=== PATIENT | female | born 1985 | race American Indian/Alaskan Native ===

== ENCOUNTER 2016-11-11 05:07 | Emergency (ER) | payer MEDICARE ==
[2016-11-11 05:29] VITALS: BP 141/91
[2016-11-11 06:12] LABS: Basophils % (Auto) 0.6 % (0.0-1.8); Eosinophils % (Auto) 7.3 % (0.0-4.3); Hemoglobin 12.3 gm/dl (10.1-14.3); Mean Corpuscular HGB Conc 32 % (30-34); Mean Corpuscular Hemoglobin 29 pg (28-32); Mean Corpuscular Volume 90 fl (79-97); Platelet Count 334 K/mm3 (140-440); White Blood Count 8.2 K/mm3 (4.5-11.0)
[2016-11-11 06:20] LABS: INR 1.06 (0.87-1.13); Partial Thromboplastin Time 30.4 Sec. (24.2-36.6)
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
[2016-11-11 06:42] LABS: Alanine Aminotransferase 11 units/L (7-56); Albumin 3.7 g/dL (3.9-5); Alkaline Phosphatase 67 units/L (35-129); Anion Gap 17 mmol/L; BUN/Creatinine Ratio 11.42; Blood Urea Nitrogen 8 mg/dL (7-17); Calcium 8.7 mg/dL (8.4-10.2); Carbon Dioxide 23 mmol/L (22-30); Chloride 103.2 mmol/L (98-107); Glucose 99 mg/dL (65-100); Lipase 17 units/L (13-60); Potassium 3.7 mmol/L (3.6-5.0); Sodium 139 mmol/L (137-145); Total Protein 7.4 g/dL (6.3-8.2)
--- NOTE | 2016-11-11 07:03 | ED Elopement Review ---
ED Pt Elopement review - Results review Lab results: Laboratory Tests 11/11/16 11/11/16 11/11/16 05:32 05:32 05:32 WBC 8.2 RBC 4.20 Hgb 12.3 Hct 38.0 MCV 90 MCH 29 MCHC 32 RDW 15.0 Plt Count 334 Lymph % (Auto) 34.9 [place] % (Auto) 6.1 Eos % (Auto) 7.3 H Baso % (Auto) 0.6 Lymph # 2.9 [place] # 0.5 Eos # 0.6 H Baso # 0.0 Seg Neutrophils % 51.1 Seg Neutrophils # 4.2 PT INR APTT Sodium 139 Potassium 3.7 Chloride 103.2 Carbon Dioxide 23 Anion Gap 17 BUN 8 Creatinine 0.7 Estimated GFR > 60 BUN/Creatinine Ratio 11.42 Glucose 99 Calcium 8.7 Total Bilirubin 0.20 AST 11 ALT 11 Alkaline Phosphatase 67 Troponin T < 0.010 Total Protein 7.4 Albumin 3.7 L Albumin/Globulin Ratio 1.0 Lipase 17 HCG, Qual Negative 11/11/16 05:32 WBC RBC Hgb Hct MCV MCH MCHC RDW Plt Count Lymph % (Auto) [place] % (Auto) Eos % (Auto) Baso % (Auto) Lymph # [place] # Eos # Baso # Seg Neutrophils % Seg Neutrophils # PT 13.7 INR 1.06 APTT 30.4 Sodium Potassium Chloride Carbon Dioxide Anion Gap BUN Creatinine Estimated GFR BUN/Creatinine Ratio Glucose Calcium Total Bilirubin AST ALT Alkaline Phosphatase Troponin T Total Protein Albumin Albumin/Globulin Ratio Lipase HCG, Qual - Call Back decision Pt Call Back Decision: No action required
[2016-11-11 07:04] LABS: Bacteria,Urine 1+ /HPF (Negative); Bilirubin,Urine NEG (Negative); Blood,Urine MOD (Negative); Ketones,Urine NEG (Negative); Leukocyte Esterase,Urine NEG (Negative); Mucus,Urine 1+ /HPF; Nitrite,Urine NEG (Negative); Protein,Urine <15 mg/dL mg/dL (Negative); Urobilinogen,Urine < 2.0 mg/dL (<2.0)
== END 2016-11-11 07:03 ==
LOC: ED 05:07
DX: Z53.21 Procedure and treatment not carried out due to patient leaving prior to being seen by health care provider (principal)
CPT/HCPCS: 36415; 80053; 81001; 83690; 84484; 84703; 85025; 85610; 85730; 93005; 93010

== ENCOUNTER 2017-07-12 10:50 | Emergency (ER) | payer MEDICARE ==
[2017-07-12 11:47] VITALS: BP 121/71
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
[2017-07-12] MEDS ORDERED: TETRACAINE 0.5% OU PRN (12:07)
[2017-07-12] MEDS ORDERED: FUL-GLO OP ONE ×2 (12:07→12:11)
[2017-07-12] MEDS ORDERED: BSS ONE (12:11)
[2017-07-12] MEDS ORDERED: TETRACAINE 0.5% ONE (12:11)
== END 2017-07-12 12:57 | disposition home or self-care (01) ==
LOC: ED 10:50
DX: S05.02XA Injury of conjunctiva and corneal abrasion without foreign body, left eye, initial encounter (principal); I10 Essential (primary) hypertension; I25.2 Old myocardial infarction; V89.2XXA Person injured in unspecified motor-vehicle accident, traffic, initial encounter; Y93.89 Activity, other specified; Y92.89 Other specified places as the place of occurrence of the external cause; Y99.8 Other external cause status
CPT/HCPCS: 99283

== ENCOUNTER 2018-01-14 15:36 | Emergency (ER) | payer MEDICARE ==
[2018-01-14 16:02] VITALS: BP 147/94
[2018-01-14 20:12] LABS: Basophils # (Auto) 0.1 K/mm3 (0.0-0.1); Basophils % (Auto) 0.4 % (0.0-1.8); Eosinophils # (Auto) 0.6 K/mm3 (0.0-0.4); Eosinophils % (Auto) 4.9 % (0.0-4.3); Hematocrit 36.8 % (30.3-42.9); Hemoglobin 11.9 gm/dl (10.1-14.3); Lymphocytes # (Auto) 3.5 K/mm3 (1.2-5.4); Lymphocytes % (Auto) 29.3 % (13.4-35.0); Mean Corpuscular HGB Conc 32 % (30-34); Mean Corpuscular Hemoglobin 29 pg (28-32); Mean Corpuscular Volume 91 fl (79-97); Monocytes # (Auto) 0.7 K/mm3 (0.0-0.8); Platelet Count 320 K/mm3 (140-440); Red Blood Count 4.06 M/mm3 (3.65-5.03)
[2018-01-14 20:22] LABS: INR 0.91 (0.87-1.13)
[2018-01-14 20:30] LABS: BUN/Creatinine Ratio 14; Blood Urea Nitrogen 10 mg/dL (7-17); Calcium 9.4 mg/dL (8.4-10.2); Hemolysis Index 4
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
[2018-01-14] MEDS ORDERED: MOTRIN PO ONE (23:06)
== END 2018-01-14 23:39 | disposition home or self-care (01) ==
LOC: ED 15:36
DX: M79.602 Pain in left arm (principal); I10 Essential (primary) hypertension; I25.2 Old myocardial infarction; E03.9 Hypothyroidism, unspecified
CPT/HCPCS: 36415; 80048; 85025; 85610; 85730; 93005; 93010; 99283

== ENCOUNTER 2018-10-09 10:00 | Emergency (ER) | payer MEDICARE ==
[2018-10-09 10:04] VITALS: BP 134/79
[2018-10-09] MEDS ORDERED: IBUPROFEN PO ONE (10:28)
--- NOTE | 2018-10-09 10:39 | Emergency Department Report ---
ED Lower Extremity HPI - General Chief Complaint: Extremity Problem,Nontraumatic Stated Complaint: LEFT FOOT PAIN Time Seen by Provider: 10/09/18 10:20 Source: patient Mode of arrival: Wheelchair Limitations: No Limitations - History of Present Illness Initial Comments: This is a 33-year-old female nontoxic, well nourished in appearance, no acute signs of distress presents to the ED with c/o of left knee pain 1 day. Patient stated that she believes she twisted it while getting to the bed. Patient denies any other trauma. Patient denies any numbness, tingling, fever, chills, nausea, vomiting, chest pain, shortness of breath, headache, stiff neck. Patient denies any joint swelling or joint redness. Patient denies decreased range of motion. Patient stated has decreased gait due to pain. Patient denies any allergies or significant past medical history. MD Complaint: foot injury -: days(s) (1) Injury: Foot: Left Place: home Severity: mild Severity scale (0 -10): 8 Improves With: immobilization Worsens With: weight bearing, movement, palpation Associated Symptoms: able to partially bear weight, ambulatory. denies: snap/pop sensation, swelling, numbness, tingling, unable to bear weight - Related Data Previous Rx's Medication Instructions Recorded Last Taken Type Ciprofloxacin 0.3% (Nf) 5 drops OS Q6H #1 drops 07/12/17 Unknown Rx [Ciprofloxacin OPTH] Ibuprofen 400 mg PO QID 5 Days #20 tablet 01/14/18 Unknown Rx Acetaminophen/Codeine [Tylenol 1 tab PO Q6H PRN #12 tab 10/09/18 Unknown Rx /Codeine # 3 tab] Ibuprofen [Motrin] 600 mg PO Q8H PRN #20 tablet 10/09/18 Unknown Rx Allergies Allergy/AdvReac Type Severity Reaction Status Date / Time No Known Allergies Allergy Verified 01/14/18 15:58 ED Review of Systems ROS: Stated complaint: LEFT FOOT PAIN Other details as noted in HPI Constitutional: denies: chills, fever Eyes: denies: eye pain, eye discharge, vision change ENT: denies: ear pain, throat pain Respiratory: denies: cough, shortness of breath, wheezing Cardiovascular: denies: chest pain, palpitations Endocrine: no symptoms reported Gastrointestinal: denies: abdominal pain, nausea, diarrhea Genitourinary: denies: urgency, dysuria, discharge Musculoskeletal: denies: back pain, joint swelling, arthralgia Skin: denies: rash, lesions Neurological: denies: headache, weakness, paresthesias Psychiatric: denies: anxiety, depression Hematological/Lymphatic: denies: easy bleeding, easy bruising ED Past Medical Hx - Past Medical History Previous Medical History?: Yes Hx Hypertension: Yes Hx Heart Attack/AMI: Yes (AGE 16) Hx Congestive Heart Failure: No Hx Diabetes: No Hx Asthma: No Hx COPD: No Additional medical history: Brain injury. Sean in left leg. Blood clots in left side of body. [place] at age 17. Hypothyroidism. Anemia. 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 Vitamin D deficiency - Surgical History Past Surgical History?: Yes Additional Surgical History: Sean placement to left leg. Heart Surgery. left eye surgery. Obesity - Social History Smoking Status: Never Smoker Substance Use Type: None - Medications Home Medications: Home Medications Medication Instructions Recorded Confirmed Last Taken Type Ciprofloxacin 0.3% (Nf) 5 drops OS Q6H #1 drops 07/12/17 Unknown Rx [Ciprofloxacin OPTH] Ibuprofen 400 mg PO QID 5 Days #20 tablet 01/14/18 Unknown Rx Acetaminophen/Codeine [Tylenol 1 tab PO Q6H PRN #12 tab 10/09/18 Unknown Rx /Codeine # 3 tab] Ibuprofen [Motrin] 600 mg PO Q8H PRN #20 tablet 10/09/18 Unknown Rx ED Physical Exam - General Limitations: No Limitations General appearance: alert, in no apparent distress - Head Head exam: Present: atraumatic, normocephalic - Extremities Exam Extremities exam: Present: normal inspection, full ROM, tenderness, normal capillary refill. Absent: joint swelling, calf tenderness - Expanded Lower Extremity Exam Left Hip exam: Present: normal inspection, full ROM. Absent: tenderness, swelling Upper Leg exam: Present: normal inspection, full ROM. Absent: tenderness, swelling Knee exam: Present: normal inspection, full ROM. Absent: tenderness, swelling Lower Leg exam: Present: normal inspection, full ROM. Absent: tenderness, swelling Ankle exam: Present: normal inspection, full ROM. Absent: tenderness, swelling, abrasion, laceration, ecchymosis, deformity, crepidus, dislocation, erythema, a nterior draw sign Foot/Toe exam: Present: normal inspection, full ROM, tenderness. Absent: swelling, abrasion, laceration, ecchymosis, deformity, crepidus, dislocation, erythema, amputation, puncture wound, foreign body, calcaneal tenderness, tenderness at base of 5th metatarsal, nail avulsion, subungual hematoma Neuro vascular tendon exam: Present: no vascular compromise Gait: Positive: observed and limited by pain - Back Exam Back exam: Present: normal inspection, full ROM. Absent: tenderness, CVA tenderness (R) - Neurological Exam Neurological exam: Present: alert, oriented X3 - Psychiatric Psychiatric exam: Present: normal affect, normal mood - Skin Skin exam: Present: warm, dry, intact, normal color. Absent: rash ED Course Vital Signs 10/09/18 10:04 Temperature 98.2 F Pulse Rate 95 H Respiratory 18 Rate Blood Pressure 134/79 [Right] O2 Sat by Pulse 96 Oximetry - Reevaluation(s) Reevaluation #1: 10/09/18 10:38 Patient is speaking in full sentences with no signs of distress noted. ED Lower Extremity MDM - Medical Decision Making This is a 33-year-old female that presents with left foot strain. Patient is stable and was examined by me. I referred patient to an orthopedic doctor for further evaluation for possible MRI. X-ray has been obtained and dictated by the radiologist. Patient is notified of the x-ray report with noted by the patient. Patient does have normal gait with no tenderness and no joint swelling. No ecchymosis. no joint redness or swelling. Not warm to touch. No signs of cellulites present. Patient received a ortho shoe. Patient was instructed to RICE therapy. Patient received Motrin for pain. Patient is discharged with Motrin. At time of discharge, the patient does not seem toxic or ill in appearance. No acute signs of distress noted. Patient agrees to discharge treatment plan of care. No further questions noted by the patient. Critical care attestation.: If time is entered above; I have spent that time in minutes in the direct care of this critically ill patient, excluding procedure time. ED Disposition Clinical Impression: Strain of left foot Disposition: DC-01 TO HOME OR SELFCARE Is pt being admited?: No Does the pt Need Aspirin: No Condition: Stable Instructions: RICE Therapy (ED), Acetaminophen/Codeine (By mouth) Additional Instructions: Follow-up with a orthopedic doctor in 3-5 days or if symptoms worsen and continue return to emergency room as soon as possible. Do not operate any machinery while taking Tylenol with codeine as this may cause drowsiness. Prescriptions: Ibuprofen [Motrin] 600 mg PO Q8H PRN #20 tablet PRN Reason: Pain Acetaminophen/Codeine [Tylenol /Codeine # 3 tab] 1 tab PO Q6H PRN #12 tab PRN Reason: Pain , Severe (7-10) Referrals: PRIMARY CAREMD [Primary Care Provider] - 3-5 Days AMILCAR NAPIER MD [Staff Physician] - 3-5 Days [facility] [Outside] - 3-5 Days [facility] [Outside] - 3-5 Days Forms: Work/School Release Form(ED)
--- NOTE | 2018-10-09 11:05 | XRay Report ---
PROCEDURE: XR FOOT 3+V LT TECHNIQUE: 3 views of the left foot. HISTORY:LT FOOT PAIN COMPARISON: None FINDINGS: There is no acute fracture seen. There is no dislocation seen. There is a small plantar heel spur. IMPRESSION: There is no acute abnormality identified. Small heel spur. This document is electronically signed by Silvia Liu MD., October 09 2018 11:03:39 AM ET
== END 2018-10-09 11:30 | disposition home or self-care (01) ==
LOC: ED 10:00
DX: S96.912A Strain of unspecified muscle and tendon at ankle and foot level, left foot, initial encounter (principal); I10 Essential (primary) hypertension; I25.2 Old myocardial infarction; E03.9 Hypothyroidism, unspecified; Z86.2 Personal history of diseases of the blood and blood-forming organs and certain disorders involving the immune mechanism; X50.1XXA Overexertion from prolonged static or awkward postures, initial encounter; Y93.89 Activity, other specified; Y92.019 Unspecified place in single-family (private) house as the place of occurrence of the external cause; Y99.8 Other external cause status
CPT/HCPCS: 99283

== ENCOUNTER 2020-12-04 10:36 | Emergency (ER) | payer MEDICARE ==
[2020-12-04 11:55] VITALS: BP 166/93
--- NOTE | 2020-12-04 12:35 | Emergency Department Report ---
ED Extremity Problem HPI - General Chief complaint: Extremity Injury, Lower Stated complaint: LEFT FOOT PAIN Time Seen by Provider: 12/04/20 12:04 Source: patient Mode of arrival: Ambulatory Limitations: No Limitations - History of Present Illness Initial comments: 35-year-old female presents to the ER today with complaints of pain to the plantar aspect of her left foot. She states that the pain started a couple days ago. She denies any particular injury but she states that she does do lots of standing at home baking, she states that she also walks about an hour a day trying to lose weight. Patient states that the pain is worse when she first wakes up in the morning and stands or if she is sitting for period of time and then stands up. She states that she was told a couple years back that she had heel spurs, but at the time she was having pain mainly around the heel but now the pain is mainly to the middle of the plantar foot. She states that she never followed up with the follow up specialist. Did give her a shot for pain in the ER at the time she was seen in got better. She reports no bruising, swelling or any other symptoms at this time. MD Complaint: other (left foot pain ) -: Gradual, days(s) - Related Data Previous Rx's Medication Instructions Recorded Last Taken Type Ketorolac [Toradol] 10 mg PO Q6H PRN #20 tablet 12/04/20 Unknown Rx Allergies Allergy/AdvReac Type Severity Reaction Status Date / Time No Known Allergies Allergy Verified 12/04/20 11:55 ED Review of Systems ROS: Stated complaint: LEFT FOOT PAIN Other details as noted in HPI Comment: All other systems reviewed and negative Constitutional: denies: chills, fever Eyes: denies: eye pain, eye discharge, vision change ENT: denies: ear pain, throat pain, dental pain, hearing loss, epistaxis, congestion Respiratory: denies: cough, shortness of breath, wheezing Cardiovascular: denies: chest pain, palpitations, dyspnea on exertion, edema, syncope, paroxysmal nocturnal dyspnea Genitourinary: denies: urgency, dysuria, frequency, hematuria, discharge, abnormal menses, dyspareunia Musculoskeletal: arthralgia. denies: back pain, joint swelling Skin: denies: rash, lesions Neurological: abnormal gait. denies: headache, weakness, numbness, paresthesias, confusion Psychiatric: denies: anxiety, depression, auditory hallucinations, visual hallucinations, homicidal thoughts, suicidal thoughts Hematological/Lymphatic: denies: easy bleeding, easy bruising ED Past Medical Hx - Past Medical History Hx Hypertension: Yes Hx Heart Attack/AMI: Yes (AGE 16) Hx Congestive Heart Failure: No Hx Diabetes: No Hx Asthma: No Hx COPD: No Additional medical history: Brain injury. Sean in left leg. Blood clots in left side of body. UT at age 17. Hypothyroidism. Anemia. 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 Vitamin D deficiency - Surgical History Additional Surgical History: Sean placement to left leg. Heart Surgery. left eye surgery. Obesity - Social History Smoking Status: Never Smoker Substance Use Type: None - Medications Home Medications: Home Medications Medication Instructions Recorded Confirmed Last Taken Type Ketorolac [Toradol] 10 mg PO Q6H PRN #20 tablet 12/04/20 Unknown Rx ED Physical Exam - General Limitations: No Limitations General appearance: alert, in no apparent distress, obese - Head Head exam: Present: atraumatic, normocephalic, normal inspection - Eye Eye exam: Present: normal appearance, PERRL, EOMI Pupils: Present: normal accommodation - Respiratory Respiratory exam: Absent: respiratory distress - Cardiovascular Cardiovascular Exam: Present: regular rate - Extremities Exam Extremities exam: Present: tenderness (Patient has tenderness to palpation to the medial plantar aspect of the left foot with increased pain plantar flexion but range of motion of the foot normal. No bruising, swelling or deformity noted.), normal capillary refill. Absent: pedal edema, joint swelling, calf tenderness - Neurological Exam Neurological exam: Present: alert, oriented X3, CN II-XII intact, abnormal gait (Mild limping gait secondary to pain) - Psychiatric Psychiatric exam: Present: normal affect, normal mood - Skin Skin exam: Present: intact ED Course Vital Signs 12/04/20 11:55 Temperature 98.4 F Pulse Rate 74 Respiratory 18 Rate Blood Pressure 166/93 [Left] O2 Sat by Pulse 100 Oximetry ED Medical Decision Making - Radiology Data Radiology results: report reviewed Patient: SHARON RUIZ MR#: [id number] : 1985 Acct:[id number] Age/Sex: 35 / F ADM Date: 12/04/20 Loc: ED Attending Dr: Ordering Physician: JAILYN FONTENOT Date of Service: 12/04/20 Procedure(s): XR foot 2V LT Accession Number(s): [id number] cc: JAILYN FONTENOT Fluoro Time In Minutes: LEFT FOOT HISTORY: Plantar foot pain COMPARISON: None. TECHNIQUE: 2 views of the left foot were obtained. FINDINGS: Bones: No fracture or dislocation. Joint spaces: Maintained. Soft tissues: No significant abnormality. Additional findings: Tibial intramedullary nail from previous fracture ORIF IMPRESSION: 1. No significant abnormality. Signer Name: Justino Munoz MD Signed: 12/04/2020 1:00 PM Workstation Name: [id number] Transcribed By: TL Dictated By: Justino Munoz MD Electronically Authenticated By: Justino Munoz MD Signed Date/Time: 12/04/20 1300 DD/ 1300 TD/TT: Critical care attestation.: If time is entered above; I have spent that time in minutes in the direct care of this critically ill patient, excluding procedure time. ED Disposition Clinical Impression: Plantar fasciitis, Heel spur Disposition: DC-01 TO HOME OR SELFCARE Is pt being admited?: No Does the pt Need Aspirin: No Condition: Stable Instructions: Heel Spur, Plantar Fasciitis Additional Instructions: Take the Toradol as prescribed. I recommend that you wear comfortable shoes with gel insole. Keep your appointment with follow up specialist on December 19. Return to ED if worse. Prescriptions: Ketorolac [Toradol] 10 mg PO Q6H PRN #20 tablet PRN Reason: Pain Referrals: SHEREEN SLOAN [Other] - 3-5 Days Time of Disposition: 13:53
--- NOTE | 2020-12-04 13:05 | XRay Report ---
LEFT FOOT HISTORY: Plantar foot pain COMPARISON: None. TECHNIQUE: 2 views of the left foot were obtained. FINDINGS: Bones: No fracture or dislocation. Joint spaces: Maintained. Soft tissues: No significant abnormality. Additional findings: Tibial intramedullary nail from previous fracture ORIF IMPRESSION: 1. No significant abnormality. Signer Name: Justino Munoz MD Signed: 12/04/2020 1:00 PM Workstation Name: [id number]
== END 2020-12-04 14:29 | disposition home or self-care (01) ==
LOC: ED 10:36
DX: M72.2 Plantar fascial fibromatosis (principal); M77.32 Calcaneal spur, left foot; I10 Essential (primary) hypertension; I25.2 Old myocardial infarction; Z98.890 Other specified postprocedural states; Z79.899 Other long term (current) drug therapy

== ENCOUNTER 2021-11-21 10:28 | Emergency (ER) | payer MEDICARE ==
[2021-11-21 10:39] VITALS: BP 156/92
[2021-11-21] MEDS ORDERED: MECLIZINE 25 MG TAB PO ONE (13:46)
[2021-11-21 13:57] LABS: Basophils % (Auto) 0.4 % (0.0-1.8); Eosinophils # (Auto) 0.3 K/mm3 (0.0-0.4); Eosinophils % (Auto) 2.4 % (0.0-4.3); Hematocrit 33.9 % (30.3-42.9); Hemoglobin 11.3 gm/dl (10.1-14.3); Lymphocytes # (Auto) 2.4 K/mm3 (1.2-5.4); Lymphocytes % (Auto) 22.3 % (13.4-35.0); Mean Corpuscular HGB Conc 33 % (30-34); Mean Corpuscular Volume 87 fl (79-97); Monocytes # (Auto) 0.7 K/mm3 (0.0-0.8); Monocytes % (Auto) 6.1 % (0.0-7.3); Platelet Count 297 K/mm3 (140-440); Red Blood Count 3.91 M/mm3 (3.65-5.03); Red Cell Distribution Width 16.1 % (13.2-15.2)
--- NOTE | 2021-11-21 14:39 | Emergency Department Report ---
ED Dizziness HPI - General Chief Complaint: Dizziness Stated Complaint: DIZZY/NAUSEA Time Seen by Provider: 11/21/21 13:31 Source: patient Mode of arrival: Ambulatory Limitations: No Limitations - History of Present Illness Initial Comments: Patient is a 36-year-old female presenting to ED with complaint of dizziness beginning yesterday. States her symptoms are elicited with movement or standing up or sitting down. The symptoms resolve when she is being still. She reports associated nausea without vomiting. Denies headache or any other focal dev rological deficits. - Related Data Previous Rx's Medication Instructions Recorded Last Taken Type Ketorolac [Toradol] 10 mg PO Q6H PRN #20 tablet 12/04/20 Unknown Rx Meclizine [Antivert] 25 mg PO TID PRN #12 11/21/21 Unknown Rx Allergies Allergy/AdvReac Type Severity Reaction Status Date / Time No Known Allergies Allergy Verified 12/04/20 11:55 ED Review of Systems ROS: Stated complaint: DIZZY/NAUSEA Other details as noted in HPI Constitutional: denies: chills, fever Respiratory: denies: cough, shortness of breath, wheezing Cardiovascular: denies: chest pain, palpitations Gastrointestinal: denies: abdominal pain, nausea, diarrhea Genitourinary: denies: urgency, dysuria, discharge Skin: denies: rash, lesions Neurological: denies: headache, weakness, paresthesias Psychiatric: denies: anxiety, depression ED Past Medical Hx - Past Medical History Previous Medical History?: Yes Hx Hypertension: Yes Hx Heart Attack/AMI: Yes (AGE 16) Hx Congestive Heart Failure: No Hx Diabetes: No Hx Asthma: No Hx COPD: No Additional medical history: Brain injury. Sean in left leg. Blood clots in left side of body. AL at age 17. Hypothyroidism. Anemia. 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 Vitamin D deficiency - Surgical History Past Surgical History?: Yes Additional Surgical History: Sean placement to left leg. Heart Surgery. left eye surgery. Obesity - Social History Smoking Status: Never Smoker - Medications Home Medications: Home Medications Medication Instructions Recorded Confirmed Last Taken Type Ketorolac [Toradol] 10 mg PO Q6H PRN #20 tablet 12/04/20 Unknown Rx Meclizine [Antivert] 25 mg PO TID PRN #12 11/21/21 Unknown Rx ED Physical Exam - General Limitations: No Limitations General appearance: alert, in no apparent distress, obese - Head Head exam: Present: atraumatic, normocephalic - Neck Neck exam: Present: normal inspection - Respiratory Respiratory exam: Present: normal lung sounds bilaterally. Absent: respiratory distress - Cardiovascular Cardiovascular Exam: Present: regular rate, normal rhythm - GI/Abdominal GI/Abdominal exam: Present: soft. Absent: distended, tenderness - Neurological Exam Neurological exam: Present: alert, oriented X3 - Psychiatric Psychiatric exam: Present: normal affect, normal mood - Skin Skin exam: Present: warm, dry, intact, normal color ED Course Vital Signs 11/21/21 11/21/21 10:34 12:54 Temperature 98.3 F Pulse Rate 82 Respiratory 18 Rate Blood Pressure 156/92 O2 Sat by Pulse 97 98 Oximetry ED Medical Decision Making - Medical Decision Making Patient presenting with complaint of positional dizziness beginning yesterday. EKG is normal. CBC and CMP are unremarkable. Patient given meclizine in ED. Suspect likely benign paroxysmal positional vertigo. Will discharge home with Rx for Antivert. Critical care attestation.: If time is entered above; I have spent that time in minutes in the direct care of this critically ill patient, excluding procedure time. ED Disposition Clinical Impression: Benign paroxysmal positional vertigo Disposition: 01 HOME / SELF CARE / HOMELESS Is pt being admited?: No Condition: Stable Instructions: Vertigo, [id number], Benign Positional Vertigo Time of Disposition: 14:46
[2021-11-21 14:41] LABS: Alanine Aminotransferase 11 units/L (7-56); Albumin 3.8 g/dL (3.9-5); Blood Urea Nitrogen 10 mg/dL (7-17); Calcium 9.1 mg/dL (8.4-10.2); Hemolysis Index 3
[2021-11-21 14:42] LABS: BUN/Creatinine Ratio 14
--- NOTE | 2021-11-25 18:27 | Electrocardiograph Report ---
[facility] Test Date: 2021-11-21 Test Time: 10:37:37 Pat Name: SHARON RUIZ Department: Room: Gender: F Director [employer] Communications: LYNN : 1985 Requested By: CARLY LEON Order Number: [id number] Reading MD: Ashley Kruse Measurements Intervals [place] Rate: 77 P: 54 UT: 165 QRS: 18 QRSD: 108 T: 69 QT: 407 QTc: 460 Interpretive Statements Sinus rhythm No previous ECG available for comparison Electronically Signed On 11-25-2021 18:27:22 EDT by Ashley Kruse
== END 2021-11-21 17:47 | disposition left against medical advice (07) ==
LOC: ED 10:28
DX: H81.10 Benign paroxysmal vertigo, unspecified ear (principal); I10 Essential (primary) hypertension
CPT/HCPCS: 36415; 80053; 85025; 93005; 99283